=== PATIENT | female | born 1940 | race Native Hawaiian/Other Pacific Islander ===

== ENCOUNTER 2016-12-27 20:14 | Outpatient (CLI) | payer OTHER ==
[~2016-12-27 20:14] MED LIST: AMLO2.5T PO; CARV25TA PO; ELIQUIS5 MG OR; FURO20TA67 PO; FURO40TA93 PO; HYZAAR1 TA2 PO; JANUMET XR1 TA1 PO; LEVO0.1224 PO; LEVO0.1519 PO; LIPITOR80 MG PO; OMEPRAZOLE20 MG OR; SPIRONOLACT50 MG PO; ULTRAM ER100 M1 PO; WARF1TAB7 PO
[2016-12-27] MEDS ORDERED: BINOSTO70 MG PO (21:13)
[2016-12-27] MEDS ORDERED: LANTUS SOLOSTAR SC (21:14)
[2016-12-27] MEDS ORDERED: CALTRATE 603 PO (21:14)
== END 2016-12-27 20:18 | disposition short-term general hospital (02) ==
LOC: AMB 20:14
DX: R07.89 Other chest pain (principal); R61 Generalized hyperhidrosis; R00.2 Palpitations
CPT/HCPCS: A0425; A0427

== ENCOUNTER 2016-12-27 20:21 | Emergency (ER) | payer OTHER ==
[~2016-12-27] VITALS: Ht 162.6 cm; Wt 68.0 kg
[2016-12-27 20:31] LABS: PLATELET COUNT 171 K/uL (152-353)
[2016-12-27 20:41] LABS: POTASSIUM 3.6 mmol/L (3.6-5.2)
[2016-12-27] MEDS ORDERED: BINOSTO70 MG PO (21:13)
[2016-12-27] MEDS ORDERED: CALTRATE 603 PO (21:14)
[2016-12-27] MEDS ORDERED: LANTUS SOLOSTAR SC (21:14)
[2016-12-27 21:40] VITALS: BP 178/82; TEMP 98
== END 2016-12-27 21:56 | disposition home or self-care (01) ==
LOC: ED 20:21
DX: R07.89 Other chest pain (principal); I48.91 Unspecified atrial fibrillation; E11.9 Type 2 diabetes mellitus without complications; I50.9 Heart failure, unspecified; I45.19 Other right bundle-branch block
CPT/HCPCS: 36415; 80053; 82550; 83036; 83880; 84484; 85027; 86318; 93005; 99283

== ENCOUNTER 2017-02-07 12:31 | Outpatient (CLI) | payer OTHER ==
[~2017-02-07] VITALS: Ht 160 cm; Wt 68.9 kg
[~2017-02-07 12:31] MED LIST changes: +BINOSTO70 MG PO; +CALTRATE 603 PO; +LANTUS SOLOSTAR SC
== END 2017-02-07 19:28 | disposition home or self-care (01) ==
LOC: INF 12:31
DX: D64.89 Other specified anemias (principal)
CPT/HCPCS: 96365; Q0138

== ENCOUNTER 2017-02-11 10:40 | Outpatient (CLI) | payer OTHER ==
[~2017-02-11] VITALS: Ht 160 cm; Wt 68.0 kg
[2017-02-11 11:00] VITALS: BP 139/67; TEMP 98.3
== END 2017-02-11 20:46 | disposition home or self-care (01) ==
LOC: INF 10:40
DX: D64.89 Other specified anemias (principal)
CPT/HCPCS: 96365; Q0138

== ENCOUNTER 2018-10-31 17:05 | Emergency (ER) | payer OTHER ==
[~2018-10-31] VITALS: Ht 152.4 cm; Wt 73.9 kg
[2018-10-31 19:01] LABS: PLATELET COUNT 125 K/uL (152-353)
[2018-10-31 19:13] LABS: POTASSIUM 5.3 mmol/L (3.6-5.2)
[2018-10-31 19:30] LABS: PARTIAL THROMBOPLASTIN TIME 26.9 SECONDS (24.5-33.6)
[2018-10-31 21:22] VITALS: BP 138/78; TEMP 98.2
== END 2018-10-31 21:22 | disposition home or self-care (01) ==
LOC: ED 17:05
PROVIDERS: Family Medicine
DX: R53.1 Weakness (principal); D64.89 Other specified anemias; I63.81 Other cerebral infarction due to occlusion or stenosis of small artery; I48.91 Unspecified atrial fibrillation
CPT/HCPCS: 36415; 80053; 81000; 84484; 85027; 85610; 85730; 93005; 99283

== ENCOUNTER 2018-11-08 14:08 | Outpatient (CLI) | payer OTHER ==
[2018-11-08 14:34] LABS: PLATELET COUNT 132 K/uL (152-353)
== END 2018-11-08 19:08 | disposition home or self-care (01) ==
LOC: LABW 14:08
PROVIDERS: Internal Medicine
DX: D62 Acute posthemorrhagic anemia (principal)
CPT/HCPCS: 36415; 85027

== ENCOUNTER 2019-04-18 10:50 | Outpatient (CLI) | payer OTHER ==
[2019-04-18 11:07] LABS: PLATELET COUNT 125 K/uL (152-353)
[2019-04-18 11:29] LABS: POTASSIUM 4.3 mmol/L (3.6-5.2)
== END 2019-04-18 23:37 | disposition home or self-care (01) ==
LOC: LABW 10:50
PROVIDERS: Internal Medicine Gastroenterology
DX: D50.8 Other iron deficiency anemias (principal); K74.69 Other cirrhosis of liver
CPT/HCPCS: 36415; 80053; 82105; 85027; 85610

== ENCOUNTER 2019-06-17 06:54 | Emergency (ER) | payer OTHER ==
[~2019-06-17] VITALS: Ht 152.4 cm; Wt 72.1 kg
[2019-06-17 07:00] VITALS: TEMP 98.3
[2019-06-17 07:33] LABS: PLATELET COUNT 111 K/uL (152-353)
[2019-06-17 07:54] LABS: PARTIAL THROMBOPLASTIN TIME 24.5 SECONDS (24.5-33.6)
[2019-06-17] MEDS ORDERED: PANTOPRAZOLE 40MG TA PO (09:24)
[2019-06-17] MEDS ORDERED: LIPITOR80 MG PO (09:25)
[2019-06-17] MEDS ORDERED: NEURONTIN 100M100 MG PO (09:26)
[2019-06-17] MEDS ORDERED: CARV12.5 PO (09:27)
[2019-06-17] MEDS ORDERED: LORA0.5T17 PO (09:27)
[2019-06-17] MEDS ORDERED: TYLENOL325 MG PO (09:34)
[2019-06-17 10:35] VITALS: BP 146/64
== END 2019-06-17 10:38 | disposition home or self-care (01) ==
LOC: ED 06:54
PROVIDERS: Emergency Medicine
DX: K92.2 Gastrointestinal hemorrhage, unspecified (principal); I48.91 Unspecified atrial fibrillation; D64.89 Other specified anemias; I45.19 Other right bundle-branch block
CPT/HCPCS: 36415; 80053; 81000; 82272; 85027; 85610; 85730; 93005; 96360; 96375; 99284; 99285; J3490

== ENCOUNTER 2019-06-17 10:41 | Outpatient (CLI) | payer OTHER ==
[~2019-06-17 10:41] MED LIST changes: +CARV12.5 PO; +LORA0.5T17 PO; +NEURONTIN 100M100 MG PO; +PANTOPRAZOLE 40MG TA PO; +TYLENOL325 MG PO
== END 2019-06-17 11:09 | disposition short-term general hospital (02) ==
LOC: AMB 10:41
DX: K92.2 Gastrointestinal hemorrhage, unspecified (principal); D64.89 Other specified anemias; I48.2 Chronic atrial fibrillation; K76.89 Other specified diseases of liver
CPT/HCPCS: A0425; A0429

== ENCOUNTER 2019-12-30 16:44 | Outpatient (CLI) | payer OTHER | END 2019-12-30 16:49 | disposition short-term general hospital (02) | LOC: AMB 16:44 | DX: R46.4 Slowness and poor responsiveness (principal); W18.39XA Other fall on same level, initial encounter; Y92.89 Other specified places as the place of occurrence of the external cause | CPT/HCPCS: A0425; A0427 ==

== ENCOUNTER 2019-12-30 16:51 | Emergency (ER) | payer OTHER ==
[~2019-12-30] VITALS: Ht 152.4 cm; Wt 72.6 kg
[2019-12-30 17:21] LABS: PLATELET COUNT 151 K/uL (152-353)
[2019-12-30 19:05] LABS: PARTIAL THROMBOPLASTIN TIME 26.5 SECONDS (24.5-33.6)
[2019-12-30 20:36] VITALS: TEMP 97.5
[2019-12-30 21:29] VITALS: BP 100/70
== END 2019-12-30 21:32 | disposition short-term general hospital (02) ==
LOC: ED 16:51
PROVIDERS: Family Medicine
PROC: 0T9B70Z Drainage of Bladder with Drainage Device, Via Natural or Artificial Opening (ICD-10-PCS; principal; 2019-12-30)
DX: R79.89 Other specified abnormal findings of blood chemistry (principal); J96.90 Respiratory failure, unspecified, unspecified whether with hypoxia or hypercapnia; R06.02 Shortness of breath; S51.811A Laceration without foreign body of right forearm, initial encounter; I48.91 Unspecified atrial fibrillation; W18.39XA Other fall on same level, initial encounter; Y92.89 Other specified places as the place of occurrence of the external cause
CPT/HCPCS: 36600; 51702; 80053; 81000; 82550; 82805; 84484; 85027; 85379; 85610; 85730; 93005; 96372; 99285; J1650

== ENCOUNTER 2019-12-30 21:39 | Outpatient (CLI) | payer OTHER | END 2019-12-30 22:55 | disposition short-term general hospital (02) | LOC: AMB 21:39 | DX: S41.119A Laceration without foreign body of unspecified upper arm, initial encounter (principal); R79.89 Other specified abnormal findings of blood chemistry; W18.39XA Other fall on same level, initial encounter; Y92.89 Other specified places as the place of occurrence of the external cause | CPT/HCPCS: A0425; A0427 ==